=== PATIENT | male | born 1955 | race African-American/Black ===

== ENCOUNTER 2016-12-01 21:40 | Emergency (ER) | payer MEDICAID ==
[~2016-12-01] VITALS: Ht 182.9 cm; Wt 95.0 kg
[2016-12-01 22:55] VITALS: BP 168/96
== END 2016-12-02 01:15 | disposition left against medical advice (07) ==
LOC: ER 21:40
DX: Z53.21 Procedure and treatment not carried out due to patient leaving prior to being seen by health care provider (principal)

== ENCOUNTER → 2024-04-20 | Day surgery (SDC) | payer MEDICARE, MEDICAID ==
[~2024-04-20] VITALS: Ht 182.9 cm; Wt 94.8 kg
[~2024-04-20] MED LIST: ASPI-1497 PO; ATOR20TA65 PO; BUPIVACAINE HCL/PF 0.5% (5MG/ML) 10ML ONE; EMPA10TA PO; EZET10TA81 PO; FENTANYL CITRATE/PF 50MCG/ML 2ML VIAL ONE; GLYCOPYRROLATE 0.2 MG/ML 2ML VIAL IV PRN; GLYCOPYRROLATE 0.2 MG/ML 2ML VIAL ONE; HEPARIN 5000 UNITS/ML VIAL ONE; HYDRALAZINE 20MG/ML VIAL IV PRN; LABETALOL 5MG/ML 4ML INJ IV PRN; NEOSTIGMINE METHYLSULFATE 1MG/ML 10 ML VIAL ONE; ONDANSETRON HCL 4MG/2ML INJ IV PRN; POLYMYXIN B SULFATE 500000 UNITS/VIAL ONE; RIVA20TA PO; ROCURONIUM BROMIDE 10MG/ML VIAL 5ML IV ONE; SKIN ADHESIVE 0.7 GM EA TOP ONE; SPIR25TA6 PO
[2024-04-20] MEDS: LACTATED RINGERS 1,000 ML IV SCH (06:28)
[2024-04-20] MEDS: HYDROMORPHONE HCL/PF 1MG/ML INJ IV PRN ×2 (09:52→10:29)
[2024-04-20 10:29] VITALS: BP 133/88; PULSE 65; RESP 13
== END | disposition home or self-care (01) ==
LOC: OR 05:27
PROVIDERS: ATTEND Surgery
DX: K40.90 Unilateral inguinal hernia, without obstruction or gangrene, not specified as recurrent (principal); I25.10 Atherosclerotic heart disease of native coronary artery without angina pectoris; E78.5 Hyperlipidemia, unspecified; Z79.899 Other long term (current) drug therapy; Z79.82 Long term (current) use of aspirin; Z98.890 Other specified postprocedural states
CPT/HCPCS: 49505; 82962; J2710; C1781; J3010; J0665; J3490 ×3; J1644; J1171